=== PATIENT | female | born 1995 | race Caucasian/White ===

== ENCOUNTER 2017-01-06 10:34 | Emergency (ER) | payer OTHER ==
[2017-01-06 10:41] VITALS: BP 121/79
--- NOTE | 2017-01-06 12:51 | ED Physician Documentation ---
History of Present Illness - Stated complaint Stated Complaint: CHEST PAIN - Chief complaint Chief Complaint: Cardiac - History obtained from History obtained from: Patient - Additonal information Additional information: Patient is a pleasant 21-year-old female with a distant history of anxiety who presents with a complaint of palpitations and occasionally dizziness. She has had this problem off and on for many months. She has had several EKGs all of which were normal. She had a pulse checked today that was slightly elevated and was told to come to the emergency department. She denies any fever chills there is no nausea vomiting constipation, diarrhea or lower urinary symptoms. She has no leg pain or swelling and there is no control use. There are no other venous thromboembolism risk factors. Review of systems: For pertinent positive and negatives in the review of systems please see the history of present illness, otherwise all other systems have been reviewed and are negative. Dragon disclaimer: Parts of this medical record were created using voice recognition technology. Because of the inherent limitations of this system, occasional same sounding word substitutions do occur and persist despite proofreading. Please read the document for context. Review of Systems Cardiac: reports: Chest pain / pressure, Palpitations. 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 - Present Medications Home Medications: Ambulatory Orders Medication Instructions Recorded Confirmed No Known Home Medications [No 01/06/17 01/06/17 Known Home Medications] - Allergies Allergies/Adverse Reactions: Allergies Allergy/AdvReac Type Severity Reaction Status Date / Time Sulfa (Sulfonamide Allergy Rash Verified 01/06/17 10:41 Antibiotics) - Social History Does the pt smoke?: No Smoking Status: Never smoker Does the pt drink ETOH?: Yes - Immunizations Immunizations are current?: Yes PD ED PE NORMAL - Vitals Vital signs reviewed: Yes - General General: Alert and oriented X 3, No acute distress, Well developed/nourished - HEENT HEENT: Atraumatic, PERRL - Neck Neck: Supple, no meningeal sign - Cardiac Cardiac: RRR, No murmur, No gallop, No rub - Respiratory Respiratory: No respiratory distress, Clear bilaterally - Abdomen Abdomen: Normal bowel sounds, Soft, Non tender, Non distended - Back Back: No CVA TTP, No spinal TTP - Derm Derm: Normal color, Warm and dry, No rash, Other - Extremities Extremities: No deformity, No tenderness to palpate, Normal ROM s pain, No edema - Psych Psych: Normal mood, Normal affect Results - Vitals Vitals: Vital Signs - 24 hr 01/06/17 10:37 Temperature 36.4 C L Heart Rate 68 Respiratory 13 Rate Blood Pressure 121/79 O2 Saturation 99 Oxygen O2 Source Room air PD MEDICAL DECISION MAKING - ED course Complexity details: reviewed results, re-evaluated patient ED course: Pleasant healthy 21-year-old female with a distant history of anxiety who presents with complaint of palpitations off and on for months. She occasionally gets bouts of dizziness as well. She had an episode today where she developed palpitations and a friend measured her pulse in the low 100s. She was asked to come in and seek medical attention. On examination she is a healthy young female within normal endocrinologic, cardiac, pulmonary, and gastrointestinal exam. There are no signs or symptoms of venous thromboembolism on exam. She is very low risk for ACS. The patient's EKG is perfect. EKG demonstrates a normal sinus rhythm with a normal MD, QRS, QT interval without ST elevation depression or T-wave inversion. Chest x-ray shows a structurally normal-appearing heart and lungs. I did recommend if her symptoms continue entertain the possibility of having a Holter monitor. I suspect there could be a little component of anxiety. Disposition to home Clinical impression: 1. Palpitations Departure - Departure Disposition: Home, Self Care Clinical Impression: Heart palpitations Condition: Good Instructions: ED Palpitations
--- NOTE | 2017-01-06 12:54 | XRAY Preliminary Report ---
Exam: XR Chest 2 View PA/LAT IMPRESSION: Normal 2-view chest radiography. [facility] SITE ID: [id number]
--- NOTE | 2017-01-06 12:55 | XRAY Report ---
EXAM: CHEST RADIOGRAPHY EXAM DATE: 01/06/2017 12:26 PM. CLINICAL HISTORY: Tachycardia. COMPARISON: None. TECHNIQUE: 2 views. FINDINGS: Lungs/Pleura: No focal opacities evident. No pleural effusion. No pneumothorax. Normal volumes. Mediastinum: Heart and mediastinal contours are unremarkable. Other: None. IMPRESSION: Normal 2-view chest radiography. [facility] Referring Provider Line: [phone] SITE ID: [id number]
== END 2017-01-06 13:00 | disposition home or self-care (01) ==
LOC: ED 10:34
DX: R00.2 Palpitations (principal)
CPT/HCPCS: 71020; 93005; 99283